=== PATIENT | male | born 1965 | race Two or more races ===

== ENCOUNTER → 2025-06-29 | Outpatient (CLI) | payer MEDICAID, SELFPAY ==
--- NOTE | 2025-06-29 14:30 | XR_ITS ---
Examination: CT abdomen and pelvis without contrast. Coronal 3-D reconstructions. Sagittal 2-D reconstructions. Date and time of exam: June 29, 2025, 1413 hours INDICATIONS: Diagnosis unilateral inguinal hernia without obstruction or gangrene, intermittent hernia pain for years CTDI: vol (mGy): 7.66 DLP: (mGycm): 466 Technique: Axial images of the abdomen have been obtained, 3 mm slice thickness Intravenous contrast material has not been administered. Low dose protocols were performed. One or more of the following dose reduction techniques were used; automated exposure control, adjustment of the mA and/or KV according to patient size, use of iterative reconstruction technique. Findings: No focal liver or splenic lesions No gallstones No pancreatic or adrenal mass No renal or ureteral calculi, no hydronephrosis Aorta normal size Normal appendix No bowel obstruction Scattered colonic diverticulosis Left inguinal hernia containing colon, but no incarcerated bowel Contracted urinary bladder IMPRESSION: Large left inguinal hernia containing sigmoid colon but no incarcerated bowel or bowel obstruction
== END | disposition home or self-care (01) ==
DX: K40.90 Unilateral inguinal hernia, without obstruction or gangrene, not specified as recurrent (principal)
CPT/HCPCS: 74176